=== PATIENT | female | born 1965 | race Caucasian/White ===

== ENCOUNTER → 2017-12-30 | Outpatient (CLI) | payer BC ==
[~2017-12-30] MED LIST: CEPH500 PO; DIPH50 PO
== END ==
LOC: LAB 11:29
DX: J02.9 Acute pharyngitis, unspecified (principal)
CPT/HCPCS: 87070

== ENCOUNTER 2023-07-22 07:37 | Day surgery (SDC) | payer BC ==
[~2023-07-22 07:37] MED LIST changes: +ALPR.5; +Amaryl1 MG PO; +BACL10 PO; +ESTRADIOL1 MG PO; +GABA300 PO; +Gemfibrozil600 MG PO; +IBUP800 PO; +IMITREX50 MG PO; +Lisinopril2.5 MG PO; +METF500 PO; +OXAYDO5 M1 PO; +OXYB5 PO; +OXYC5 PO; +PROAIR DIGIHAL90 MCG INH; +SERT50 PO; +TRULICITY1.5 MG/0.1 SC; +VITAMIN D325 MC3 PO
== END 2023-07-22 23:12 | disposition home or self-care (01) ==
LOC: CT 07:37
DX: R00.2 Palpitations (principal); R07.9 Chest pain, unspecified
CPT/HCPCS: 93242

== ENCOUNTER 2023-09-19 08:16 | Day surgery (SDC) | payer BC | END 2023-09-19 22:58 | disposition home or self-care (01) | LOC: CT 08:16 | DX: R07.89 Other chest pain (principal); I25.10 Atherosclerotic heart disease of native coronary artery without angina pectoris | CPT/HCPCS: 75571 ==

== ENCOUNTER 2024-09-30 14:56 | Emergency (ER) | payer OTHER ==
[~2024-09-30] VITALS: Ht 157.5 cm; Wt 83.9 kg
[~2024-09-30 14:56] MED LIST changes: +Percocet 5-3251 EACH PO
[2024-09-30] MEDS ORDERED: HYDROmorphone HCl/Pf 1MG SYR IV SCH (20:00)
[2024-09-30] MEDS ORDERED: Propofol 10mg/ml 20 ml Vial (Procedural) IV SCH (22:05)
[2024-09-30] MEDS ORDERED: Ketamine HCl 100 MG / ML 5ML Vial IV ONE (22:05)
[2024-09-30] MEDS ORDERED: NS 1,000 ML IV SCH (22:35)
[2024-09-30] MEDS ORDERED: RX Prepack 6 Tabs Oxycodone 5mg UD ONE (23:25)
[2024-09-30] MEDS ORDERED: OxyCODONE HCL 5 MG TAB PO ONE (23:55)
[2024-09-30] MEDS ORDERED: Ketorolac Tromethamine 15mg Vial IV ONE (23:55)
[2024-10-01 00:15] VITALS: BP 143/66
== END 2024-10-01 00:15 | disposition home or self-care (01) ==
LOC: ER 14:56
DX: S52.122A Displaced fracture of head of left radius, initial encounter for closed fracture (principal); W19.XXXA Unspecified fall, initial encounter; E11.9 Type 2 diabetes mellitus without complications; Z88.0 Allergy status to penicillin; Z88.5 Allergy status to narcotic agent; Z88.8 Allergy status to other drugs, medicaments and biological substances; Z79.84 Long term (current) use of oral hypoglycemic drugs; Z79.899 Other long term (current) drug therapy
CPT/HCPCS: 24655; 73070; 96374-59; 96375; 99152; 99283-25; A9270; J1171; J1885; J2704; J7030